=== PATIENT | male | born 1990 | race Caucasian/White ===

== ENCOUNTER 2023-06-06 10:37 | Emergency (ER) | payer OTHER ==
[2023-06-06 11:47] VITALS: BP 110/73; PULSE 77; RESP 18; TEMP 98.4; BMI 29.5
[2023-06-06] MEDS ORDERED: METHOCARBAMOL 500 MG TABLET ONE (12:11)
[2023-06-06] MEDS ORDERED: LIDOCAINE 4% PATCH TP ONE (12:12)
[2023-06-06] MEDS ORDERED: KETOROLAC TROMETHAMINE 30 MG/1 ML VIAL ONE (12:12)
[2023-06-06] MEDS: KETOROLAC TROMETHAMINE 30 MG/1 ML VIAL IM ONE (12:24)
[2023-06-06] MEDS: METHOCARBAMOL 750 MG TABLET PO ONE (12:24)
[2023-06-06] MEDS: LIDOCAINE 4% PATCH TP ONE (12:25)
[2023-06-06] MEDS ORDERED: ACETAMINOPHEN 325 MG TABLET (FP) ONE (14:02)
[2023-06-06] MEDS: ACETAMINOPHEN 500 MG TABLET (FP) PO ONE (14:08)
[2023-06-06] MEDS ORDERED: diazePAM 5 MG TABLET ONE (14:37)
[2023-06-06] MEDS: diazePAM 5 MG TABLET PO ONE (14:40)
[2023-06-06] MEDS ORDERED: LIDOCAINE PATCH REMOVAL MC SCH (22:00)
== END 2023-06-06 16:27 | disposition home or self-care (01) ==
LOC: JER 10:37
PROC: 3E0233Z Introduction of Anti-inflammatory into Muscle, Percutaneous Approach (ICD-10-PCS; principal; 2023-06-06)
DX: M54.50 Low back pain, unspecified (principal); X50.1XXA Overexertion from prolonged static or awkward postures, initial encounter
CPT/HCPCS: 72100-TC-FY; 99284-25